=== PATIENT | male | born 1995 | race Caucasian/White ===

== ENCOUNTER 2016-10-28 20:35 | Emergency (ER) | payer OTHER ==
--- NOTE | 2016-10-28 20:42 | EDPHY ---
H & P - Personal History Tetanus Vaccine Date: < 10 years - Medical/Surgical History Hx Asthma: No Hx Chronic Respiratory Disease: No Hx Diabetes: No Hx Cardiac Disease: No Hx Renal Disease: No Hx Cirrhosis: No Hx Alcoholism: No Hx HIV/AIDS: No Hx Splenectomy or Spleen Trauma: No Other PMH: none reported - Social History Smoking Status: Former smoker Time Seen by Provider: 10/28/16 20:40 Constitutional: Initial Vital Signs Temperature (C) 37 C 10/28/16 20:59 Heart Rate 75 10/28/16 20:59 Respiratory Rate 20 10/28/16 20:59 Blood Pressure 147/95 H 10/28/16 20:59 O2 Sat (%) 98 10/28/16 20:59 O2 Delivery Mode Room Air Allergies/Adverse Reactions: No Known Allergies Allergy (Unverified 01/13/15 08:55) Medical Decision Making - Diagnostics Imaging Results: Imaging Impressions Head CT 10/28/16 20:46 Impression: 1. Negative noncontrast CT of the head with no intracranial posttraumatic sequela identified. 2. Scalp hematoma. Results called and discussed with Xu Lamar MD on 10/28/2016 at 21:20 Procedures: I was asked by Dr. Cholo Nichols to repair the scalp laceration. Laceration repair. Verbal consent was obtained from the patient. The 4 cm laceration on the left posterior occiput was anesthetized using 1% lidocaine with epinephrine. The wound was irrigated with saline, draped and explored to its base with a gloved finger. There were no deep structures involved. The wound was repaired with 10 vicky. The wound repair was simple. The procedure was performed by myself. (Pam Dumont) ED Course/Re-evaluation: CHIEF COMPLAINT: Syncope HISTORY OF PRESENT ILLNESS: This patient is a 21 year old male who presents to the Emergency Department following an episode of syncope while in the ER waiting room. His friend is here to be evaluated in the ED; he was standing behind his friend in triage when he felt acutely lightheaded and lost consciousness. He hit his occipital scalp on the floor when he fell. He complains of a headache secondary to the head trauma. He denies weakness, numbness, vision or speech changes, or persistent dizziness. His Tetanus is up- to-date. REVIEW OF SYSTEMS: A 10 point review of systems was performed and is negative with the exception of the elements mentioned in the history of present illness. PHYSICAL EXAM: General Appearance: Alert, well hydrated, appropriate, and non-toxic appearing. Head: 3cm bleeding laceration to the left occiput. Eyes: Pupils equal, round, reactive to light and accommodation, EOMI, no trauma , no injection. Ears: Clear bilaterally, no perforation, normal landmarks Nose: Atraumatic, no rhinorrhea, clear. Throat: There is no erythema or exudates, no lesions, normal tonsils, mucus membranes moist. Neck: Supple, 2+ carotid upstroke, nontender, no lymphadenopathy. Respiratory: No retractions, no distress, no wheezes, and no accessory muscle use. Lungs are clear to auscultation bilaterally. Cardiovascular: Regular rate and rhythm, no murmurs, rubs, or gallops. Bilateral carotid, radial, dorsalis pedis, and posterior tibial pulses intact. Good capillary refill all extremities. Gastrointestinal: Abdomen is soft, nontender, non-distended, no masses, no rebound, no guarding, no peritoneal signs. Musculoskeletal: Normal active ROM of all extremities, atraumatic. Neurological: Alert, appropriate, and interactive. The patient has normal DTRs and non-focal cranial nerves, motor, sensory, and cerebellar exam. Skin: No rashes, good turgor, no nodules on palpation. Past medical history: Denies Past surgical history: Denies Family history: Non-contributory Social history: Single, smokes marijuana regularly DIFFERENTIAL DIAGNOSIS: The differential diagnosis for the patient's syncope included but was not limited to vasovagal syncope, arrhythmia, dehydration, cardiogenic causes, neurogenic causes, and blood loss. EKG INTERPRETATION: The 12 lead EKG was interpreted by myself: Sinus rhythm, rate 70. See hard copy and/or "tracemaster" electronic copy for interpretation. MEDICAL DECISION MAKING: This is a normally healthy 21-year-old male who presents following a syncopal episode while with his friend in the ED at triage. He lost consciousness for an indeterminate amount of time. He has evident trauma to his occipital scalp secondary to the fall. No additional injuries or findings on exam. Will proceed with laceration repair and obtain a non-contrast Head CT given loss of consciousness. Laceration performed by Pam SWEET. 2100: Patient signed out to Dr. Lamar at time of shift change pending CT results. (Cholo Nichols) The patient was turned over to ia at shift change pending CT scan results. The patient's head CT scan demonstrates no evidence of an intracranial hemorrhage. The patient's laceration was repaired by the physician energy assistant. The patient continued to be neurologically intact without evidence of abnormal vital signs while in the ED. The patient will be discharged home with instructions to return for suture removal. He is given customary aftercare and return precautions. (Xu Lamar) Differential Diagnosis: Differential diagnosis considered includes intracranial hemorrhage, skull fracture, scalp laceration, arrhythmia, vasovagal episode (Xu Lamar) Departure - Departure Disposition: Home, Routine, Self-Care Clinical Impression: Vasovagal syncope Condition: Good Instructions: Syncope (ED) Additional Instructions: 1. Use 400-600mg Ibuprofen every 6 hours as needed for headache. 2. Keep your wound clean and dry. You may shower but do not submerge your wound in water for extended period of time (ie: swimming, bathing). Return to the Emergency Department for suture removal in 7 days. 3. Follow-up with your primary care provider for reevaluation in 3-5 days if you have continue to experience headache or additional complaints. 4. Return to the Emergency Department for worsening head pain, discharge from your wound, confusion, dizziness, nausea or vomiting, weakness, or other serious concerns. Report Scribed for: Cholo Nichols Report Scribed by: Abby Marti Date of Report: 10/28/16 Time of Report: 20:42
--- NOTE | 2016-10-28 20:49 | CPEKG ---
Heart Rate: 70 RR Interval: 857 P-R Interval: 108 QRSD Interval: 98 QT Interval: 376 QTC Interval: 406 P [place]: 27 QRS [place]: -74 T Wave [place]: 34 EKG Severity - ABNORMAL ECG - EKG Impression: SINUS RHYTHM EKG Impression: SHORT IL INTERVAL, ACCELERATED AV CONDUCTION EKG Impression: LEFT ANTERIOR FASCICULAR BLOCK EKG Impression: PROBABLE LEFT VENTRICULAR HYPERTROPHY EKG Impression: ST ELEV, PROBABLE NORMAL EARLY REPOL PATTERN EKG Impression: TALL T WAVES, PROBABLY NORMAL VARIANT Electronically Signed By: Cholo Nichols 28-Oct-2016 20:51:48
[2016-10-28 21:03] VITALS: PULSE 75; O2SAT 98
[2016-10-28 23:01] VITALS: BP 110/70; RESP 16; TEMP 98.8
== END 2016-10-28 22:40 | disposition home or self-care (01) ==
PROC: 0HQ0XZZ Repair Scalp Skin, External Approach (ICD-10-PCS; principal; 2016-10-28)
DX: S01.01XA Laceration without foreign body of scalp, initial encounter (principal); R55 Syncope and collapse; Z87.891 Personal history of nicotine dependence; W18.39XA Other fall on same level, initial encounter; Y92.239 Unspecified place in hospital as the place of occurrence of the external cause